=== PATIENT | female | born 1970 | race Caucasian/White ===

== ENCOUNTER 2023-06-09 10:15 | Emergency (ER) | payer MEDICAID ==
[~2023-06-09] VITALS: Ht 165.1 cm; Wt 126.6 kg
[2023-06-09 10:40] VITALS: BP_SYST 135; PULSE 97; RESP 18; TEMP 96.8; O2SAT 95
[2023-06-09] MEDS ORDERED: ACETAMINOPHEN 325 MG TABLET PO ONE (11:00)
[2023-06-09] MEDS ORDERED: CEPH250C PO (11:51)
== END 2023-06-09 11:57 | disposition home or self-care (01) ==
LOC: SED 10:15
DX: S81.811A Laceration without foreign body, right lower leg, initial encounter (principal); I10 Essential (primary) hypertension; E11.9 Type 2 diabetes mellitus without complications; Z79.899 Other long term (current) drug therapy; X58.XXXA Exposure to other specified factors, initial encounter; Y93.89 Activity, other specified; Y92.89 Other specified places as the place of occurrence of the external cause; Y99.8 Other external cause status
CPT/HCPCS: 99283